=== PATIENT | female | born 1995 | race Caucasian/White ===

== ENCOUNTER 2016-12-15 15:06 | Emergency (ER) | payer OTHER ==
[~2016-12-15] VITALS: Ht 157.5 cm; Wt 68.0 kg
[2016-12-15 15:09] VITALS: BP 165/97; PULSE 103; RESP 16; O2SAT 97
--- NOTE | 2016-12-15 16:32 | ED.REPORT ---
HPI-Dyspnea / Wheezing Date of Service Dec 15, 2016 ED Provider: Doc,Ed MD Pt is an otherwise healthy 21 year old female with a history of anxiety who presents to the ED complaining of SOB onset yesterday. The pt c/o associated dizziness and lightheadedness. She started a new control 2 days ago, and had been off the previous control for 5 months. The pt was referred to the ED when she called an advise nurse. She denies leg swelling, urinary symptoms, and any other symptoms. The pt denies a history of blood clots. Nursing Notes Stated Complaint: SOB, LIGHT HEADED Chief Complaint: Respiratory Complaints Nursing Notes Reviewed: Yes Allergies: Coded Allergies: No Known Allergies (Unverified , 12/15/16) General Time Seen by MD: 16:31 Chief Complaint Shortness of breath Hx Obtained From: Patient Arrived By: Walk-in Sudden in Onset?: No Onset Occurred: Yesterday Symptom Duration: Duration unknown Severity: Current: No pain currently Severity: Maximum: No pain Recent Healthcare: No recent doctor visit, No recent hospitalization Similar Sx Previous: No Past Medical History Past Medical History Anxiety Past Surgical History None reported Smoking History Unknown if Ever Smoker Social History Denies Other Social History: Good social support Ambulatory Status Independent Review of Systems Respiratory: Reports: Shortness of breath Skin: Denies Swelling Complete sys rev & neg: except as marked. Female: Denies: Dysuria, Incontinence, Urinary frequency, Urinary urgency, Urination decreased, Urination increased Neurologic: Reports: Dizziness, Lightheaded Physical Exam Initial Vital Signs Vital Signs (First) Date Time Temp Pulse Resp B/P Pulse Ox O2 Delivery O2 Flow Rate FiO2 12/15/16 15:09 36.8 103 16 165/97 97 Room Air Initial VS: Reviewed ENT: Mucous membranes moist, Conjunctiva normal, No scleral icterus Abdomen / GI: Soft, Non-tender Extremities: Vascular intact, Neuro intact Skin: Warm, Dry, No cyanosis Neurologic: Alert, Oriented, Nonfocal Psychiatric: Mood/affect normal, Behavior normal General/Constitutional: Awake, Alert, Cooperative, Not toxic appearing Neck: Atraumatic, Full range of motion Respiratory / Chest: Atraumatic, Breath sounds NL, Breath sounds = bilat Cardiovascular: Heart rate NL, Regular rhythm, Heart sounds NL, No murmurs Lower Extremity / Pelvis / MS: Atraumatic, Full range of motion, Neurologic intact, Vascular intact, No edema Interpretation & Diagnostics Lab Results Interpretation Result Diagram: 12/15/16 1751 12/15/16 1751 Test 12/15/16 16:25 12/15/16 17:51 Hold Urine Received (Received) White Blood Count 11.2th/mm3 (3.8-10.1) Red Blood Count 5.26mil/mm3 (3.90-5.20) Hemoglobin 15.2g/dL (12.0-15.6) Hematocrit 44.5% (35.0-46.0) Mean Corpuscular Volume 84.6fL (81-100) Mean Corpuscular Hemoglobin 28.9pg (27.0-35.0) Mean Corpuscular Hemoglobin Concent 34.2% (32.0-37.0) Red Cell Distribution Width 12.9% (12.3-15.4) Platelet Count 218bil/L (150-400) Neutrophils (%) (Auto) 70.3% (40-74) Lymphocytes (%) (Auto) 21.4% (14-46) Monocytes (%) (Auto) 7.3% (4-12) Eosinophils (%) (Auto) 0.5% (0-5) Basophils (%) (Auto) 0.2% (0-3) D-Dimer < 0.50mg/L FEU (<0.50) Sodium Level 138mEq/L (134-144) Potassium Level 3.7mEq/L (3.5-5.2) Chloride Level 100mEq/L (97-108) Carbon Dioxide Level 22mmol/L (18-29) Blood Urea Nitrogen 13mg/dL (6-20) Creatinine 0.66mg/dL (0.57-1.00) Estimat Glomerular Filtration Rate 162mL/min (>59) Glucose Level 87mg/dL (60-99) Calcium Level 9.5mg/dL (8.5-10.1) Total Bilirubin 0.4mg/dL (0.0-1.2) Aspartate Amino Transf (AST/SGOT) 22U/L (0-50) Alanine Aminotransferase (ALT/SGPT) 16U/L (0-32) Alkaline Phosphatase 106U/L (25-150) Total Protein 7.8g/dL (6.4-8.4) Albumin 4.3g/dL (3.4-5.0) Hold [place] Top Tube Received (Received) X-Ray Chest Interpretation Chest Xray Interpretation: IMPRESSION: There is no abnormality seen in the two-view chest. Cause of shortness of breath is not identified. Dictated by: Anthony Austin M.D. on 12/15/2016 at 17:30 View: AP & lat Interpretation / Wet Read by: Interpret - Radiologist Re-Eval/Medical Decision Med Decision/Clinical Course 21-year-old female with past medical history of undiagnosed anxiety presenting with intermittent shortness of breath, worse last night. She started control about 3 days ago and was advised to come to the ER by [facility] to be evaluated for pulmonary embolus. She does not feel short of breath at this time. D-dimer was negative and chest x-ray was unremarkable. Patient was reassured Source of Hx: Old records Re-Evaluation/Progress : Time of Eval: 18:33 Re-Evaluation/Progress Note: Pt rechecked. Informed pt of plan for discharge. Pt understands and agrees with plan for discharge. F/U instructions and RTER warnings given. All questions addressed. Counseled Regarding: Diagnosis, Lab results, Need for follow-up, When/why to return to ED Discharge & Departure Impression: Primary Impression: Shortness of breath Additional Impressions: Dizziness Anxiety Ruled Out: Pulmonary embolus Disposition: Home Discharge Condition All VS Reviewed: Yes Condition: Stable Additional Instructions: Your workup today was negative for pulmonary embolus. Continue the control as prescribed. I believe the symptoms you have experienced may be related to anxiety. Your chest x-ray was normal. If you continue to have these type of symptoms you need to follow up with the primary care provider listed below to discuss them further. Return to the ER for new or worsening symptoms. Referrals: [facility] [place] Attestation Portions of this note were transcribed by Davida Pennington. I, Dr. Jimenez personally performed the history, physical exam and medical decision-making; I reviewed and confirmed the accuracy of the information in the transcribed note. Signed by: Anna Alcocer, 12/15/16 and 19:20 copies to: [facility] Lloyd Jimenez DO Dec 15, 2016 16:32 Davida Alanis Dec 15, 2016 19:14
--- NOTE | 2016-12-15 17:33 | DRSVH ---
PROCEDURE: X-RAY CHEST, TWO VIEWS ([id number]) INDICATIONS: shortness of breath TECHNIQUE: 2 views of the chest were acquired. COMPARISON: None. FINDINGS: Surgical changes and devices: None. Lungs and pleura: No pleural effusions or pneumothorax. Lungs are clear. Mediastinum: Mediastinal contours are normal. Heart size is normal. Bones and chest wall: No suspicious bony abnormalities. Soft tissues appear unremarkable. IMPRESSION: There is no abnormality seen in the two-view chest. Cause of shortness of breath is not i dentified. Dictated by: Anthony Austin M.D. on 12/15/2016 at 17:30 Approved by: Anthony Austin M.D. on 12/15/2016 at 17:31
[2016-12-15 17:54] LABS: BASOPHILS % (AUTO) 0.2 % (0-3); EOSINOPHILS % (AUTO) 0.5 % (0-5); MONOCYTES % (AUTO) 7.3 % (4-12); Mean Corpuscular Hemoglobin 28.9 pg (27.0-35.0); Mean Corpuscular Volume 84.6 fL (81-100); NEUTROPHILS % (AUTO) 70.3 % (40-74); Platelet Count 218 bil/L (150-400)
[2016-12-15 19:03] VITALS: BP 130/72; PULSE 90; RESP 15; O2SAT 98
== END 2016-12-15 19:03 | disposition home or self-care (01) ==
LOC: SED 15:06
DX: R06.02 Shortness of breath (principal); R42 Dizziness and giddiness; F41.9 Anxiety disorder, unspecified